=== PATIENT | male | born 1935 | race Hispanic/Latino ===

== ENCOUNTER 2019-09-04 17:51 | Emergency (ER) | payer MEDICARE ==
[~2019-09-04 17:51] MED LIST: AEC81 PO; ATOR10 PO; ESOM40CA PO; OLME20TA10 PO; SAXA2.5T PO
[2019-09-04 18:53] LABS: BASOPHILS % (AUTO) 0.2 % (0.0-5.0); HEMATOCRIT 34.9 % (42-54); LYMPHOCYTES % (AUTO) 8.6 % (21.0-51.0); MEAN CORPUSCULAR HEMOGLOBIN 33.1 pg (27.0-33.0); MEAN CORPUSCULAR HGB CONC 34.1 g/dL (32.0-36.0); MEAN CORPUSCULAR VOLUME 96.9 fL (79-99); MONOCYTES % (AUTO) 8.1 % (3.0-13.0); NEUTROPHILS % (AUTO) 81.8 % (40.0-77.0); PLATELET COUNT (AUTO) 213 K/uL (130-400); RED CELL DISTRIBUTION WIDTH 13.6 % (11.0-15.5); WHITE BLOOD COUNT (AUTO) 12.2 K/uL (4.8-10.8)
[2019-09-04 19:12] LABS: CARBON DIOXIDE 26 mmol/L (21-32); CHLORIDE 106 mmol/L (101-111); CREATININE 1.7 mg/dL (0.5-1.5); GLOMERULAR FILTR. RATE CALC 41 mL/min (>60); GLUCOSE,RANDOM 114 mg/dL (70-105); POTASSIUM 4.5 mmol/L (3.5-5.1); SODIUM SERUM 140 mmol/L (136-145); UREA NITROGEN, BLOOD 40 mg/dL (7-18)
[2019-09-04 19:17] LABS: ALANINE AMINOTRANSFERASE 23 U/L (12-78); ALBUMIN 4.1 g/dL (3.5-5.0); ASPARTATE AMINOTRANSFERASE 21 U/L (10-37); BILIRUBIN,TOTAL 0.5 mg/dL (0.2-1.0); TOTAL PROTEIN, SERUM 7.9 g/dL (6.0-8.3)
[2019-09-04 19:19] LABS: CRP QUANTITATIVE < 2.00 mg/L (0.00-9.0)
[2019-09-04] MEDS ORDERED: CEFTRIAXONE SODIUM 1 GM ONE (19:55)
[2019-09-04] MEDS ORDERED: SODIUM CHLORIDE 0.9% 50 ML IV ONE (19:55)
[2019-09-04] MEDS ORDERED: HYDROCODONE/ACETAMINOPHEN 5/325 MG TAB ONE (19:56)
[2019-09-04 20:49] LABS: ERYTHROCYTE SEDIMENTATION RATE 25 MM/HR (0-20)
== END 2019-09-04 20:51 | disposition home or self-care (01) ==
LOC: EDH 17:51
DX: L03.032 Cellulitis of left toe (principal); L89.899 Pressure ulcer of other site, unspecified stage; I25.10 Atherosclerotic heart disease of native coronary artery without angina pectoris; E11.9 Type 2 diabetes mellitus without complications; E78.5 Hyperlipidemia, unspecified; I10 Essential (primary) hypertension
CPT/HCPCS: 36415; 73660; 80053; 82948; 85025; 85651; 86140; 87040; 87070; 87076; 87077; 87186; 96374; 99284; J0696

== ENCOUNTER 2020-02-09 09:53 | Emergency (ER) | payer MEDICARE | END 2020-02-09 11:51 | disposition home or self-care (01) | LOC: EDH 09:53 | DX: S50.11XA Contusion of right forearm, initial encounter (principal); S40.811A Abrasion of right upper arm, initial encounter; S60.511A Abrasion of right hand, initial encounter; I10 Essential (primary) hypertension; E78.5 Hyperlipidemia, unspecified; E11.9 Type 2 diabetes mellitus without complications; I25.10 Atherosclerotic heart disease of native coronary artery without angina pectoris; Z95.1 Presence of aortocoronary bypass graft; Z72.0 Tobacco use; W18.39XA Other fall on same level, initial encounter; Y93.89 Activity, other specified; Y92.89 Other specified places as the place of occurrence of the external cause; Y99.8 Other external cause status | CPT/HCPCS: 70450; 73090; 73130 ==

== ENCOUNTER 2021-04-04 11:59 | Emergency (ER) | payer MEDICARE ==
[~2021-04-04] VITALS: Ht 149.9 cm; Wt 58.1 kg
[2021-04-04 12:49] LABS: BASOPHILS % (AUTO) 0.6 % (0.0-5.0); EOSINOPHILS % (AUTO) 1.8 % (0.0-8.0); HEMATOCRIT 33.7 % (42-54); LYMPHOCYTES % (AUTO) 13.8 % (21.0-51.0); MEAN CORPUSCULAR HEMOGLOBIN 34.3 pg (27.0-33.0); MEAN CORPUSCULAR HGB CONC 34.1 g/dL (32.0-36.0); MEAN CORPUSCULAR VOLUME 100.6 fL (79-99); MONOCYTES % (AUTO) 9.9 % (3.0-13.0); NEUTROPHILS % (AUTO) 73.6 % (40.0-77.0); PLATELET COUNT (AUTO) 199 K/uL (130-400); RED BLOOD CELL COUNT(AUTO) 3.35 MIL/uL (4.50-6.20); RED CELL DISTRIBUTION WIDTH 12.9 % (11.0-15.5); WHITE BLOOD COUNT (AUTO) 6.6 K/uL (4.8-10.8)
[2021-04-04 13:05] LABS: CREATININE 1.9 mg/dL (0.5-1.5); POTASSIUM 4.1 mmol/L (3.5-5.1)
[2021-04-04 13:07] LABS: B-TYPE NATRIURETIC PEPTIDE 157 pg/mL (0-100)
[2021-04-04 13:09] LABS: ALBUMIN 3.7 g/dL (3.5-5.0); BILIRUBIN,TOTAL 0.4 mg/dL (0.2-1.0); TOTAL PROTEIN, SERUM 7.5 g/dL (6.0-8.3)
[2021-04-04] MEDS ORDERED: LOSA25TA41 PO (14:42)
[2021-04-04] MEDS ORDERED: VITAMIN D PO (14:42)
[2021-04-04] MEDS ORDERED: METF-444 PO (14:42)
[2021-04-04] MEDS ORDERED: ATOR40TA71 PO (14:42)
[2021-04-04] MEDS ORDERED: TAMS-1 PO (14:42)
[2021-04-04] MEDS ORDERED: ICOS1CAP PO (14:42)
[2021-04-04] MEDS ORDERED: CILO50TA PO (14:42)
[2021-04-04] MEDS ORDERED: FOLI0.8T22 PO (14:42)
[2021-04-04] MEDS ORDERED: OMEP20TA25 PO (14:42)
[2021-04-04] MEDS ORDERED: METO25TA6 PO (14:42)
[2021-04-04] MEDS ORDERED: MIRT7.5T11 PO (14:42)
[2021-04-04] MEDS ORDERED: NITROGLYCERIN 1GM OINT 1 INCH/1GM TD ONE (16:30)
[2021-04-04] MEDS ORDERED: ASPIRIN 325MG EC TAB PO ONE (16:30)
[2021-04-04 17:22] VITALS: BP 168/89
== END 2021-04-04 17:29 | disposition left against medical advice (07) ==
LOC: EDH 11:59
DX: I20.0 Unstable angina (principal); T50.901A Poisoning by unspecified drugs, medicaments and biological substances, accidental (unintentional), initial encounter; I10 Essential (primary) hypertension; E11.9 Type 2 diabetes mellitus without complications; N28.9 Disorder of kidney and ureter, unspecified; E78.00 Pure hypercholesterolemia, unspecified; Z79.899 Other long term (current) drug therapy; Z79.84 Long term (current) use of oral hypoglycemic drugs; Z79.82 Long term (current) use of aspirin; Y92.89 Other specified places as the place of occurrence of the external cause
CPT/HCPCS: 36415; 70450; 71045; 80053; 82550; 83880; 84484; 85025; 93005

== ENCOUNTER 2021-05-03 21:35 | Emergency (ER) | payer MEDICARE, MEDICAID ==
[~2021-05-03] VITALS: Ht 165.1 cm; Wt 59.0 kg
[~2021-05-03 21:35] MED LIST changes: -ATOR10 PO; +ATOR40TA71 PO; +CILO50TA PO; -ESOM40CA PO; +FOLI0.8T22 PO; +ICOS1CAP PO; +LOSA25TA41 PO; +METF-444 PO; +METO25TA6 PO; +MIRT7.5T11 PO; -OLME20TA10 PO; +OMEP20TA25 PO; -SAXA2.5T PO; +TAMS-1 PO; +VITAMIN D PO
[2021-05-03] MEDS ORDERED: TETRACAINE HCL 0.5% 4 ML OPHTH SOLN OP SCH (22:30)
[2021-05-03 23:39] VITALS: BP 138/68
== END 2021-05-03 23:28 | disposition home or self-care (01) ==
LOC: EDH 21:35
DX: H57.13 Ocular pain, bilateral (principal); I10 Essential (primary) hypertension; Z79.899 Other long term (current) drug therapy; Z79.84 Long term (current) use of oral hypoglycemic drugs; Z79.82 Long term (current) use of aspirin
CPT/HCPCS: 99282

== ENCOUNTER 2021-08-11 16:35 | Emergency (ER) | payer MEDICARE ==
[~2021-08-11] VITALS: Ht 144.8 cm; Wt 49.9 kg
[2021-08-11 16:36] VITALS: BP 116/52
[2021-08-11] MEDS ORDERED: TETANUS/DIPHTHERIA TOXOID [ADULT] 0.5 ML VIAL IM ONE (18:00)
[2021-08-11] MEDS ORDERED: CEPHALEXIN 500 MG CAPSULE PO SCH (18:00)
[2021-08-11] MEDS ORDERED: ACETAMINOPHEN 500 MG TABLET PO ONE (18:00)
[2021-08-11] MEDS ORDERED: CEPH500B PO (18:26)
[2021-08-11] MEDS ORDERED: ACET-2247 PO (18:26)
== END 2021-08-11 18:58 | disposition home or self-care (01) ==
LOC: EDH 16:35
DX: S90.811A Abrasion, right foot, initial encounter (principal); I10 Essential (primary) hypertension; Z79.82 Long term (current) use of aspirin; Z79.899 Other long term (current) drug therapy; X58.XXXA Exposure to other specified factors, initial encounter; Y93.89 Activity, other specified; Y92.89 Other specified places as the place of occurrence of the external cause; Y99.8 Other external cause status
CPT/HCPCS: 73620; 90471; 90714

== ENCOUNTER 2021-09-23 13:12 | Emergency (ER) | payer MEDICARE ==
[~2021-09-23] VITALS: Ht 167.6 cm; Wt 63.5 kg
[~2021-09-23 13:12] MED LIST changes: +ACET-2247 PO; +CEPH500B PO
[2021-09-23 13:13] VITALS: BP 127/51
[2021-09-23] MEDS ORDERED: ACETAMINOPHEN 500 MG TABLET PO ONE (13:30)
[2021-09-23] MEDS ORDERED: AMOX/CLAV 875/125MG TAB PO ONE ×2 (13:30→13:42)
[2021-09-23] MEDS ORDERED: ACETAMINOPHEN 500 MG TABLET ONE (13:42)
[2021-09-23] MEDS ORDERED: AMOX1TAB16 PO (14:00)
[2021-09-23] MEDS ORDERED: TETANUS/DIPHTHERIA TOXOID [ADULT] 0.5 ML VIAL IM ONE ×2 (14:19→14:30)
== END 2021-09-23 14:15 | disposition home or self-care (01) ==
LOC: EDH 13:12
DX: S81.851A Open bite, right lower leg, initial encounter (principal); E11.9 Type 2 diabetes mellitus without complications; E78.00 Pure hypercholesterolemia, unspecified; I10 Essential (primary) hypertension; I25.10 Atherosclerotic heart disease of native coronary artery without angina pectoris; K21.9 Gastro-esophageal reflux disease without esophagitis; Z79.82 Long term (current) use of aspirin; Z79.84 Long term (current) use of oral hypoglycemic drugs; Z95.1 Presence of aortocoronary bypass graft; W54.0XXA Bitten by dog, initial encounter; Y93.89 Activity, other specified; Y92.89 Other specified places as the place of occurrence of the external cause; Y99.8 Other external cause status
CPT/HCPCS: 90471; 90714

== ENCOUNTER 2022-08-04 12:51 | Emergency (ER) | payer OTHER, MEDICARE ==
[~2022-08-04] VITALS: Ht 165.1 cm; Wt 59.0 kg
[~2022-08-04 12:51] MED LIST changes: +AMOX1TAB16 PO; -CILO50TA PO; +CILO50TA2 PO; +OMEP20TA20 PO; -OMEP20TA25 PO
[2022-08-04 13:10] LABS: BASOPHILS % (AUTO) 0.3 % (0.0-5.0); HEMATOCRIT 40.7 % (42-54); LYMPHOCYTES % (AUTO) 12.5 % (21.0-51.0); MEAN CORPUSCULAR HEMOGLOBIN 32.2 pg (27.0-33.0); MEAN CORPUSCULAR HGB CONC 33.4 g/dL (32.0-36.0); MEAN CORPUSCULAR VOLUME 96.2 fL (79-99); MONOCYTES % (AUTO) 8.6 % (3.0-13.0); NEUTROPHILS % (AUTO) 77.3 % (40.0-77.0); PLATELET COUNT (AUTO) 242 K/uL (130-400); RED BLOOD CELL COUNT(AUTO) 4.23 MIL/uL (4.50-6.20); RED CELL DISTRIBUTION WIDTH 13.7 % (11.0-15.5); WHITE BLOOD COUNT (AUTO) 8.9 K/uL (4.8-10.8)
[2022-08-04 13:23] LABS: ALBUMIN 3.5 g/dL (3.5-5.0); CREATININE 1.8 mg/dL (0.5-1.5); POTASSIUM 4.3 mmol/L (3.5-5.1); TOTAL PROTEIN, SERUM 7.5 g/dL (6.0-8.3)
[2022-08-04 14:01] LABS: B-TYPE NATRIURETIC PEPTIDE 294 pg/mL (0-100)
[2022-08-04 14:44] LABS: APPEARANCE,URINE CLEAR (CLEAR); BILIRUBIN,URINE NEGATIVE (NEGATIVE); COLOR,URINE YELLOW (YELLOW); GLUCOSE, URINE (UA) NEGATIVE (NEGATIVE); KETONES,URINE NEGATIVE (NEGATIVE); LEUKOCYTE ESTERASE ,URINE NEGATIVE Leu/uL (NEGATIVE); NITRATE,URINE NEGATIVE (NEGATIVE); PROTEIN,URINE 200 mg/dL (NEGATIVE); UROBILINOGEN,URINE 0.2 mg/dL (0.2-1.0)
[2022-08-04 14:47] LABS: MUCUS,URINE RARE LPF (None Seen); RBC,URINE 0-1 /HPF (0-1); SQUAMOUS EPITHELIAL CELL,UR RARE /HPF (0-2); WBC,URINE 0-1 /HPF (0-1)
[2022-08-04] MEDS ORDERED: IOHEXOL-350 50ML VIAL IV ONE (15:22)
[2022-08-04] MEDS ORDERED: HYDRALAZINE 20MG/ML VIAL ONE (16:06)
[2022-08-04 16:19] VITALS: BP 151/56
[2022-08-04] MEDS ORDERED: HYDRALAZINE 20MG/ML VIAL IV ONE (16:30)
== END 2022-08-04 16:44 | disposition home or self-care (01) ==
LOC: EDH 12:51
DX: I10 Essential (primary) hypertension (principal); I16.0 Hypertensive urgency; E11.9 Type 2 diabetes mellitus without complications; E78.00 Pure hypercholesterolemia, unspecified; Z79.899 Other long term (current) drug therapy; Z79.82 Long term (current) use of aspirin; Z95.1 Presence of aortocoronary bypass graft
CPT/HCPCS: 99285; 96374; 71260; 71045; 84484 ×2; 80053; 83880; 85025; 81001; 36415; 93005; J0360; Q9967